=== PATIENT | male | born 1990 | race Caucasian/White ===

== ENCOUNTER 2021-03-25 13:01 | Emergency (ER) | payer OTHER ==
[~2021-03-25] VITALS: Ht 172.7 cm; Wt 81.0 kg
[2021-03-25 13:22] VITALS: BP 147/87
--- NOTE | 2021-03-25 13:25 | PHYS DOC ---
General Adult EDM: Chief Complaint: FINGER INJURY HPI: HPI: Patient is a 30-year-old male being seen in the ER for a right fourth finger injury. Patient states that he smashed his finger on a metal door this morning. He rates pain 2 out of 10. Patient denies any decreased range of motion or decreased sensation in his finger. (TOÑO GEIGER APRN) Review of Systems: Review of Systems: 14 body systems of the review of systems have been reviewed. See HPI for pertinent positive and negative responses, otherwise all other systems are negative, nonpertinent or noncontributory (TOÑO GEIGER APRN) Allergies: Allergies: Allergies Coded Allergies Type Severity Reaction Last Updated Verified No Known Drug Allergies 03/25/21 No (TOÑO GEIGER APRN) Physical Exam: PE: Constitutional: Well developed, well nourished, no acute distress, non-toxic appearance. [] HENT: Normocephalic, atraumatic Eyes: PERRL, EOMI, conjunctiva normal, no discharge. [] Neck: Normal range of motion, no stridor Cardiovascular: Normal peripheral perfusion Lungs & Thorax: Normal work of breathing, no tachypnea Abdomen: Bowel sounds normal, soft, no tenderness, no masses, no pulsatile masses. [] Skin: Warm, dry, no erythema, no rash. [] Back: Normal range of motion [] Extremities: No tenderness, no cyanosis, no clubbing, ROM intact, no edema. Right fourth metacarpal: Redness, swelling, ecchymosis noted to right fourth metacarpal at the DIP joint, small amount of subungual hemorrhage, range of motion intact, nailbed and nail intact, neurovascularly intact. [] Neurologic: Alert and oriented X 3, normal motor function, normal sensory function, no focal deficits noted. [] Psychologic: Affect normal, judgement normal, mood normal. [] (TOÑO GEIGER APRN) EKG: EKG: [] (TOÑO GEIGER APRN) Radiology/Procedures: Radiology/Procedures: PROCEDURE: FINGER(S) RIGHT EXAM: 3 views right DATE: 03/25/2021 1:26 PM INDICATION: Reason: 4th finger / Spl. Instructions: / History: . COMPARISON: No Prior FINDINGS: Sclerotic focus fifth metacarpal base likely bone island. No acute fracture. Joint spaces are preserved. IMPRESSION: 1. No acute fracture or dislocation. Electronically signed by: Homero Galdamez MD (03/25/2021 2:18 PM) [facility] DICTATED AND SIGNED BY: HOMERO GALDAMEZ MD DATE: 03/25/21 141 CC: TOÑO GEIGER APRN; PCP,NO ~MTH0 0[] (TOÑO GEIGER APRN) Heart Score: C/O Chest Pain: No Risk Factors: Risk Factors: DM, Current or recent (<one month) smoker, HTN, HLP, family history of CAD, obesity. Risk Scores: Score 0 - 3: 2.5% MACE over next 6 weeks - Discharge Home Score 4 - 6: 20.3% MACE over next 6 weeks - Admit for Clinical Observation Score 7 - 10: 72.7% MACE over next 6 weeks - Early Invasive Strategies (TOÑO GEIGER APRN) Course & Med Decision Making: Course & Med Decision Making Pertinent Labs and Imaging studies reviewed. (See chart for details) Patient is a 30-year-old male being seen in the ER for a right fourth finger injury. An x-ray was performed it was negative for any acute findings. Patient advised to take Tylenol/ibuprofen for pain and apply ice. He can gaby tape the finger for comfort if he feels that it improves his symptoms. I discussed with patient all findings and diagnostic testing as well as the need to follow- up with PCP for further evaluation and treatment or return to the ER if any new or worsening symptoms. Strict return precautions were also discussed at length. Patient voiced understanding and agreement with the plan. Patient is hemodynamically stable at the time of disposition. (TOÑO GEIGER APRN) Course & Med Decision Making I was the Attending physician on the above date of service of this patient. This patient was evaluated, examined, treated, and dispositioned from the emergency department by the mid-level practitioner. Although I was working at the time , no assistance was requested. Electronically signed, Oral Salvador DO (ORAL SALVADOR DO) Barbara Disclaimer: Barbara Disclaimer: This electronic medical record was generated, in whole or in part, using a voice recognition dictation system. (TOÑO GEIGER APRN) Departure Departure: Impression: Primary Impression: Finger contusion Qualified Codes: S60.041A - Contusion of right ring finger without damage to nail, initial encounter Disposition: HOME / SELF CARE / HOMELESS Condition: GOOD Referrals: PCP,NO (PCP) Patient Instructions: Crush Injury, Fingers or Toes Additional Instructions: You were seen in the ER today for finger contusion. An x-ray was performed and it was negative for any acute findings. You can take Tylenol/ibuprofen for pain at home. You can also apply ice to help with the pain and swelling. If you feel like you need some stability and support of that finger taping it to the finger next to it may help. Please follow-up with your primary care provider on Friday regarding your ER visit. If you develop worsening of your pain, decreased sensation to your hand or decreased mobility please return to the ER. EMERGENCY DEPARTMENT GENERAL DISCHARGE INSTRUCTIONS Thank you for coming to [facility] (ED) today and trusting us with you care. We trust that you had a positivie experience in our Emergency Department. If you wish to speak to the department management, you may call the director at [phone]. YOUR FOLLOW UP INSTRUCTIONS ARE FOLLOWS: 1. Do you have a private Doctor? If you do not have a private doctor, please ask for a resource list of physicians or clinics that may be able to assist you with follow up care. 2. The Emergency Physician has interpreted your x-rays. The X-Ray specialist will also review them. If there is a change in the findings, you will be notified in 48 hours when at all possible. 3. A lab test or culture has been done, your results will be reviewed and you will be notified if you need a change in treatment. ADDITIONAL INSTRUCTIONS AND INFORMATION: 1. Your care today has been supervised by a physician who is specially trained in emergency care. Many problems require more than one evaluation for a complete diagnosis and treatment. We recommend that you schedule your follow up appointment as recommended to ensure complete treatment of you illness or injury. If you are unable to obtain follow up care and continue to have a problem, or if your condition worsens, we recommend that you return to the ED. 2. We are not able to safely determine your condition over the phone nor are we able to give sound medical advice over the phone. For these safety reasons, if you call for medical advice we will ask you to come to the ED for further evaluation. 3. If you have any questions regarding these discharge instructions please call the ED at [phone]. SAFETY INFORMATION: In the interest of safety, wellness, and injury prevention; we encourage you to wear your sealbelt, if you smoke; quite smoking, and we encourage family to use a protective helmet for bicycling and other sporting events that present an increased risk for head injury. IF YOUR SYMPTOMS WORSEN OR NEW SYMPTOMS DEVELOP, OR YOU HAVE CONCERNS ABOUT YOUR CONDITION; OR IF YOUR CONDITION WORSENS WHILE YOU ARE WAITING FOR YOUR FOLLOW UP APPOINTMENT; EITHER CONTACT YOUR PRIMARY CARE DOCTOR, THE PHYSICIAN WHOSE NAME AND NUMBER YOU WERE GIVEN, OR RETURN TO THE ED IMMEDIATELY. TOÑO GEIGER APRN Mar 25, 2021 13:25 ORAL SALVADOR DO Mar 27, 2021 12:55
--- NOTE | 2021-03-25 14:20 | RAD ---
EXAM: 3 views right DATE: 03/25/2021 1:26 PM INDICATION: Reason: 4th finger / Spl. Instructions: / History: . COMPARISON: No Prior FINDINGS: Sclerotic focus fifth metacarpal base likely bone island. No acute fracture. Joint spaces are preserv ed. IMPRESSION: 1. No acute fracture or dislocation. Electronically signed by: Homero Rodriguez MD (03/25/2021 2:18 PM) [facility]
== END 2021-03-25 14:31 | disposition home or self-care (01) ==
LOC: ER 13:01
DX: S60.041A Contusion of right ring finger without damage to nail, initial encounter (principal); L60.8 Other nail disorders; W23.0XXA Caught, crushed, jammed, or pinched between moving objects, initial encounter; Y93.89 Activity, other specified; Y92.89 Other specified places as the place of occurrence of the external cause; Y99.8 Other external cause status
CPT/HCPCS: 73140; 99283